=== PATIENT | male | born 1990 | race Caucasian/White ===

== ENCOUNTER 2016-07-10 03:06 | Emergency (ER) | payer MEDICAID ==
[~2016-07-10] VITALS: Ht 182.9 cm; Wt 112.5 kg
[~2016-07-10 03:06] MED LIST: ACET1TAB40 PO; ALBU8.5H5 INH; AZIT250T94 PO; IBUP-1542 PO
[2016-07-10 03:15] VITALS: Ht 182.9 cm; Wt 112.5 kg
[2016-07-10] MEDS ORDERED: LIDOCAINE 1% (MDV) 20 ML INJ SC ONE (05:30)
[2016-07-10 05:56] VITALS: BP 136/76; PULSE 77; RESP 18
[2016-07-10] MEDS ORDERED: CEPH-443 PO (06:24)
[2016-07-10] MEDS ORDERED: BACTDS PO (06:24)
[2016-07-10] MEDS ORDERED: IBUP-1542 PO (06:25)
--- NOTE | 2016-07-10 07:29 | ERD ---
ER Documentation Chief Complaint Date/Time DATE: 07/10/16 TIME: 07:21 Chief Complaint abscess upper L back x 1 month w/ fevers x 1 week HPI Patient is a 26-year-old male who presents to the emergency department with an abscess to his upper left back. Patient states that the abscess is been growing in size over the last month. Patient describes the area to be erythematous, swollen and tender to palpation. Patient states that he did have some active discharge however it has stopped. Patient states he has had intermittent fevers for the last week. Patient patient denies checking his temperature with a femoral wrist reports tactile fevers. Patient is even taking ibuprofen for his fevers. Patient denies any chest pain, shortness breath, cough, abdominal pain, nausea, vomiting, loss of consciousness. ROS All systems reviewed and are negative except as per history of present illness. Medications Home Meds Active Scripts Ibuprofen* (Ibuprofen*) 600 Mg Tablet, 600 MG PO Q6, #30 TAB Prov:REGINO BOYER PA-C 07/10/16 Cephalexin* (Keflex*) 500 Mg Capsule, 500 MG PO QID for 7 Days, CAP Prov:REGINO BOYER PA-C 07/10/16 Sulfamethoxazole-Trimethoprim* (Bactrim* DS) 800-160 Mg Tab, 1 TAB PO BID for 7 Days, TAB Prov:REGINO BOYER PA-C 07/10/16 Albuterol Sulfate* (Albuterol Sulfate* HFA) 8.5 Gm Hfa.aer.ad, 1-2 PUFF INH Q4 Y for SHORTNESS OF BREATH, #1 EA Prov:LEE QUEZADA 10/15/14 Azithromycin* (Zithromax*) 250 Mg Tablet, 250 MG PO .Luis AlbertoPACK DIRECTED, #6 TAB TAKE 500 MG (2 TABS) THE FIRST DAY THEN 250 MG (1 TAB) DAYS 2-5 Prov:LEE QUEZADA 10/15/14 Acetaminophen-Codeine* (Acetaminophen-Cod #3*) 300-30 Mg Tab, 1 TAB PO Q4H Y for PAIN LEVEL 6-10, #15 TAB Prov:CHO,RUTHANN 10/12/15 Ibuprofen* (Motrin*) 600 Mg Tab, 600 MG PO Q6 for PAIN LEVEL 1-5, #15 TAB Prov:CHO,RUTHANN 10/12/14 Ibuprofen* (Ibuprofen*) 600 Mg Tablet, 600 MG PO Q6, #30 TAB Prov:CA SPANGLER PA-C 09/28/14 Azithromycin* (Zithromax*) 250 Mg Tablet, 250 MG PO .ZPACK DIRECTED for COUGH , #6 TAB TAKE 500 MG (2 TABS) THE FIRST DAY THEN 250 MG (1 TAB) DAYS 2-5 Prov:CA SPANGLER PA-C 09/28/14 Allergies Allergies: Coded Allergies: No Known Allergy (Unverified , 10/15/14) PMhx/Soc History of Surgery: No Anesthesia Reaction: No Hx Neurological Disorder: No Hx Respiratory Disorders: No Hx Cardiac Disorders: No Hx Psychiatric Problems: No Hx Miscellaneous Medical Probl: No (DENIES MEDICAL AND SURGICAL HX.) Hx Alcohol Use: Yes (OCC) Hx Substance Use: No Hx Tobacco Use: Yes (OCC) Smoking Status: Current every day smoker Physical Exam Vitals Vital Signs Date Time Temp Pulse Resp B/P Pulse Ox O2 Delivery O2 Flow Rate FiO2 07/10/16 05:56 77 18 136/76 98 Room Air 07/10/16 03:15 100.1 105 18 146/87 98 Physical Exam GENERAL: Well-developed, well-nourished male. Appears in no acute distress. HEAD: Normocephalic, atraumatic. EYES: Pupils are equally reactive bilaterally. EOMs grossly intact. No conjunctival erythema. ENT: Moist mucous membranes. No uvula deviation. No kissing tonsils. NECK: Supple. No meningismus. Normal range of motion of the neck. LUNG: Clear to auscultation bilaterally. No rhonchi, wheezing, rales or coarse breath sounds. HEART: Regular rate and rhythm. No murmurs, rubs or gallops. BACK: No midline tenderness. 4 cm circular abscess noted in the patient's left upper back with surrounding erythema. Area is tender to palpation. + fluctuance. No streaking. EXTREMITIES: Equal pulses bilaterally. No peripheral clubbing, cyanosis or edema. No unilateral leg swelling. NEUROLOGIC: Alert and oriented. Moving all four extremities without any difficulty. Normal speech. Steady gait. SKIN: Normal color. Warm and dry. No rashes or lesions. Results 24 hrs Current Medications Medications (Trade) Dose Ordered Sig/Cinthia Route PRN Reason Start Time Stop Time Status Last Admin Dose Admin Lidocaine (Xylocaine 1% (Mdv) 20 ml) 20 ml ONCE ONCE SC 07/10/16 05:30 07/10/16 05:31 DC Procedures/MDM ED COURSE: The patient was stable throughout ED course. I kept the patient and/or family informed of laboratory and diagnostic imaging results throughout the ED course. PROCEDURES: INCISION AND DRAINAGE: The patient was verbally consented prior to procedure. Patient was explained the risks, benefits and alternatives to this procedure. Location: Left upper back Abscess size: 4 cm Anesthesia: local 1% lidocaine, 5 cc Preparation: The area was prepped in a sterile fashion using betadine x3 cleanses. A sterile field was prepared. Technique: A sterile 11 blade scalpel was used to make a 1 cm linear incision into the abscess. Procedure: A midline abscess incision was made using a sterile scalpel in a linear fashion. Purulent material was expressed with direct pressure. Blunt probing was used to break up loculations. Bleeding was minimal. Packing: none Of note, during incision and drainage procedure, patient appeared to have a pre- syncopal episode. Patient stated that he felt dizzy and nauseous while seated on the gurney. Patient was immediately laid down flat on the gurney. Patient did not hit his head or fall. Myself and wardrobe technician were present the entire time. Patient's vitals were immediately rechecked and were noted to be stable. Upon talking to the patient and patient's mother who was present throughout the entire encounter, it was noted that the patient does have a fear of needles and has passed out in the past when having a blood draw. Patient wishes to proceed with procedure thus purulent material was continued to be expressed with direct pressure. Patient's wound was dressed with sterile gauze by wardrobe technician. Post- procedural wound care was discussed with the patient. MEDICAL DECISION MAKING: This is a 26 year male who presents with an abscess to his left upper back 1 month. Vital signs were reviewed. Patient was afebrile. Patient was not hypoxic. An incision and drainage was performed here in the emergency department. Purulent material was expressed from the wound with direct pressure. During incision and drainage procedure, patient was noted to have a presyncopal episode. Patient reported feeling dizzy and nauseous. Patient was immediately laid flat on the gurney. Patient did not hit his head or fall. His vitals were rechecked immediately and documented as noted. His vitals were stable. At this time of the patient's presentation is most consistent with abscess and presyncopal episode secondary to fear of needles. Patient likely had a vasovagal response. Low suspicion for PE, arrhythmia, stroke, TIA, orthostatic hypotension. Low suspicion for deep space infection, insect bite, anaphylaxis. Low suspicion for PRESCRIPTIONS: Keflex, Bactrim, ibuprofen DISCHARGE: At this time, the patient is stable for discharge and outpatient management. Post-procedural wound care was discussed with the patient. The patient has been advised to return to the ER in 2 days for a wound check. I have instructed the patient to promptly return to the ER for any new or worsening symptoms including increasing pain, fever, warmth, redness or swelling. The patient and/ or family expressed understanding of and agreement with this plan. All questions were answered. Home care instructions were provided. Departure Diagnosis: Primary Impression: Abscess Additional Impression: Pre-syncope Condition: Stable Patient Instructions: Abscess, Incision And Drainage Referrals: [facility] YOU HAVE RECEIVED A MEDICAL SCREENING EXAM AND THE RESULTS INDICATE THAT YOU DO NOT HAVE A CONDITION THAT REQUIRES URGENT TREATMENT IN THE EMERGENCY DEPARTMENT. FURTHER EVALUATION AND TREATMENT OF YOUR CONDITION CAN WAIT UNTIL YOU ARE SEEN IN YOUR DOCTORS OFFICE WITHIN THE NEXT 1-2 DAYS. IT IS YOUR RESPONSIBILITY TO MAKE AN APPOINTMENT FOR FOLOW-UP CARE. IF YOU HAVE A PRIMARY DOCTOR --you should call your primary doctor and schedule an appointment IF YOU DO NOT HAVE A PRIMARY DOCTOR YOU CAN CALL OUR PHYSICIAN REFERRAL HOTLINE AT IF YOU CAN NOT AFFORD TO SEE A PHYSICIAN YOU CAN CHOSE FROM THE FOLLOWING [facility] [address] [facility]. [facility] [address] [facility] [facility] [address] [facility] [address] [facility] [facility] [address] [facility]. [employer] [facility] [address] [facility]. [facility] YOU HAVE RECEIVED A MEDICAL SCREENING EXAM AND THE RESULTS INDICATE THAT YOU DO NOT HAVE A CONDITION THAT REQUIRES URGENT TREATMENT IN THE EMERGENCY DEPARTMENT. FURTHER EVALUATION AND TREATMENT OF YOUR CONDITION CAN WAIT UNTIL YOU ARE SEEN IN YOUR DOCTORS OFFICE WITHIN THE NEXT 1-2 DAYS. IT IS YOUR RESPONSIBILITY TO MAKE AN APPOINTMENT FOR FOLOW-UP CARE. IF YOU HAVE A PRIMARY DOCTOR --you should call your primary doctor and schedule and appointment IF YOU DO NOT HAVE A PRIMARY DOCTOR YOU CAN CALL OUR PHYSICIAN REFERRAL HOTLINE AT . IF YOU CAN NOT AFFORD TO SEE A PHYSICIAN YOU CAN CHOSE FROM THE FOLLOWING [facility] INSTITUTIONS: [facility] [address] [place] [address] [facility] [address] [place] [address] [facility] [address] [place] [address] Additional Instructions: Call your primary care doctor TOMORROW for an appointment during the next 1-2 days.See the doctor sooner or return here if your condition worsens before your appointment time. Follow up in 2 days for wound recheck. Return sooner for any new or worsening symptoms including but not limited to severe pain, swelling, redness, fever, chills, nausea, vomiting or loss of consciousness. REGINO BOYER PA-C Jul 10, 2016 07:29
== END 2016-07-10 06:45 | disposition home or self-care (01) ==
LOC: FTE 03:06
DX: L02.212 Cutaneous abscess of back [any part, except buttock and flank] (principal); F17.210 Nicotine dependence, cigarettes, uncomplicated; R55 Syncope and collapse
CPT/HCPCS: 10061; Z7502; Z7610